=== PATIENT | male | born 1995 | race African-American/Black ===

== ENCOUNTER 2024-08-19 01:22 | Emergency (ER) | payer OTHER ==
[~2024-08-19] VITALS: Ht 177.8 cm; Wt 82.5 kg
[2024-08-19 01:44] VITALS: BP 151/81; PULSE 82; RESP 18; TEMP 99.1; O2SAT 99
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
--- NOTE | 2024-08-19 02:33 | DVH ---
CLINICAL INDICATION: injury/pain TECHNIQUE: XY R FOOT 3 VIEW XRAY Comparison: None FINDINGS/IMPRESSION: : There is no evidence of acute fracture or dislocation. Soft tissues are unremarkable.
[2024-08-19] MEDS ORDERED: IBUP-1456 PO (03:11)
== END 2024-08-19 03:16 | disposition home or self-care (01) ==
LOC: ER 01:22
DX: S90.31XA Contusion of right foot, initial encounter (principal); Z88.0 Allergy status to penicillin; V29.888A Rider (driver) (passenger) of other motorcycle injured in other specified transport accidents, initial encounter; Y93.55 Activity, bike riding; Y92.89 Other specified places as the place of occurrence of the external cause; Y99.8 Other external cause status
CPT/HCPCS: 73630

== ENCOUNTER 2024-12-29 04:20 | Emergency (ER) | payer OTHER, MEDICAID ==
[~2024-12-29] VITALS: Ht 177.8 cm; Wt 79.7 kg
[~2024-12-29 04:20] MED LIST: IBUP-1456 PO
--- NOTE | 2024-12-29 05:34 | ED.PDOC ---
History of Present Illness HPI Comments 29 y/o M presents with c/c on-and-off, poking-sensation chest pain for the past 7x months. Endorsement or unprovoked and atraumatic onset. No pertinent medical, surgical, social, or family history. Denies any shortness of breath, palpitations, dizziness, or further associated symptoms. Chief Complaint: Chest Pain Time Seen by MD: 04:30 Allergies: Coded Allergies: Penicillins (Verified Allergy, Unknown, 08/19/24) Home Meds Active Scripts Ibuprofen (Ibuprofen) 800 Mg Tab, 800 MG PO Q8HP PRN for 4 Days, #12 TAB Prov:ALFREDA OCHOA REGULATORY AFFAIRS DIRECTOR 08/19/24 Information Source: Patient Mode of Arrival: Ambulatory Past Medical History PAST MEDICAL HISTORY: Denies Surgical History: Denies all surgeries Family History Family History: Unknown Social History Smoker: Non-Smoker Alcohol: Denies ETOH Use Drugs: Denies Drug Use Lives In: Home All Other Systems: Reviewed and Negative (Comprehensive systems review obtained and negative except for what is stated in the HPI.) Physical Exam General Appearance: No Apparent Distress, Normal HEENT: Normal ENT Inspection, Pharynx Normal, TMs Normal Neck: Full Range of Motion, Non-Tender, Normal, Normal Inspection Respiratory: Chest Non-Tender, Lungs Clear, No Accessory Muscle Use, No Respiratory Distress, Normal Breath Sounds Cardiovascular: No Edema, No JVD, No Murmur, No Gallop, Normal Peripheral Pulses, Regular Rate/Rhythm Breast Exam: Deferred Gastrointestinal: No Organomegaly, Non Tender, No Pulsatile Mass, Normal Bowel Sounds, Soft Genitalia: Deferred Pelvic: Deferred Rectal: Deferred Extremities: No calf tenderness, Normal capillary refill, Normal inspection, Normal range of motion, Non-tender, No pedal edema Musculoskeletal : Apperance: Normal Neurologic: Alert, waste hand II-XII nml as Tested, No Motor Deficits, Normal Affect, Normal Mood, No Sensory Deficits Cerebellar Function: Normal Reflexes: Normal Skin: Dry, Normal Color, Warm Lymphatic: No Adenopathy Was a procedure done? Was a procedure done?: No EKG EKG #1: Pulse Rate (adult): 65 [place]: Normal Cardiac Rhythm: NSR Block: None Hypertrophy: None ST: Normal EKG #2: Pulse Rate (adult): 66 [place]: Normal Cardiac Rhythm: NSR Block: None Hypertrophy: None ST: Normal Differential Dx Considerations may include: NH, PE, ACS, URI, PNA, angina, anxiety, GERD, among others X-Ray, Labs, Meds, VS Vital Signs Date Time Temp Pulse Resp B/P (MAP) Pulse Ox O2 Delivery O2 Flow Rate FiO2 12/29/24 05:34 66 12/29/24 04:45 66 12/29/24 04:31 65 12/29/24 04:24 97.6 70 16 129/88 97 97.6 Lab Test 12/29/24 05:33 12/29/24 04:35 Range/Units Troponin I High Sensitivity 4 3 L </=54 ng/L Patient alert. Complaining of chest discomfort. On examination he denies chest pain. Cardiac marker within normal limits. No leg swelling. No shortness a breath. Saturation pristine on room air. Chest x-ray reviewed does not show any acute process. No acute process. Explained to the patient. Was told to follow up with his primary care physician. Was told to come back if there is any problem. Time of 1ST Reevaluation: 05:00 Reevaluation 1ST: Unchanged Patient Education/Counseling: Diagnosis, Treatment, Need For Follow Up Family Education/Counseling: Diagnosis, Treatment, Need For Follow Up Comments pt has had daily chest pain since june, with the description of sudden poking feeling. he has no cardiac risk factors however patient has labs are still pending. I will signed out to Additional Information Previous visits: N/A The following tests were ordered, and results were reviewed by me: CXR, EKG, troponin Additional Information was gathered from interviewing the following independent historians: N/A I reviewed and agreed with the following test results read by other providers: CXR I discussed treatment and results with medical personnel and: patient SEPSIS Sepsis Screen Date sepsis recognized/suspect: Dec 29, 2024 Time Sepsis recognized/suspect: 042 Recent Procedure: No On Antibiotic Therapy: No Respiratory Rate >20: No Heart Rate >90: No Temp<36 C (96.8 F) or >38.3 C: No SBP <90 or MAP <65 mmHG: No New Acute Mental Status Change: No Is the patient on CPAP, BIPAP,: No Physician Orders Electrocardigram (12/29/24 04:29) Troponin-I Hs (12/29/24 07:29) Electrocardigram (12/29/24 05:29) Electrocardigram (12/29/24 07:29) Chest Xray 1 View (12/29/24 04:51) Vital Signs Date Time Temp Pulse Resp B/P (MAP) Pulse Ox O2 Delivery O2 Flow Rate FiO2 12/29/24 05:34 66 12/29/24 04:45 66 12/29/24 04:31 65 12/29/24 04:24 97.6 70 16 129/88 97 97.6 Departure 1 Departure Time of Disposition: 06:36 Impression: Primary Impression: Atypical chest pain Additional Impression: Non-cardiac chest pain Disposition: 01 HOME / SELF CARE / HOMELESS Condition: Good Discharged With: Self, Relative Critical Care Note Critical Care Time?: No Stability Stability form required: No Heart Score Heart Score: Heart Score Response (Comments) Value History Slightly Suspicious 0 EKG Normal 0 Age <45 0 Risk Factors No known risk factors 0 Troponin Normal limit 0 Total 0 I personally scribed for JESÚS MURRELL MD ([email or web address]) on 12/29/24 at 05:34. Electronically submitted by Delroy Dumont ([email or web address]). JESÚS MURRELL MD Dec 29, 2024 05:34 ERIC CRAIN MD Dec 29, 2024 06:36
--- NOTE | 2024-12-29 05:43 | DVH ---
CHEST RADIOGRAPH Indication: cp Technique: 1 view Comparison: None FINDINGS: Lines and Tubes: None Lungs/Pleura: No focal consolidation, pleural effusion or pneumothorax. Cardiomediastinum: Unremarkable. Other: No acute osseous abnormality. IMPRESSION: 1. No acute cardiopulmonary abnormality.
[2024-12-29 07:01] VITALS: BP 127/83; PULSE 54; RESP 17; TEMP 98.5; O2SAT 100
--- NOTE | 2024-12-29 19:50 | ECG ---
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
--- NOTE | 2024-12-29 19:50 | ECG ---
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
--- NOTE | 2025-01-01 13:31 | ECG ---
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
== END 2024-12-29 07:01 | disposition home or self-care (01) ==
LOC: ER 04:20
DX: R07.89 Other chest pain (principal); Z88.0 Allergy status to penicillin
CPT/HCPCS: 36415; 71045; 84484; 93005

== ENCOUNTER 2025-03-29 12:37 | Emergency (ER) | payer MEDICAID, OTHER ==
[~2025-03-29] VITALS: Ht 177.8 cm; Wt 79.3 kg
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
[2025-03-29] MEDS ORDERED: NAP500T PO (16:17)
[2025-03-29 16:39] VITALS: BP 123/69; PULSE 60; RESP 18; TEMP 98.9; O2SAT 99
== END 2025-03-29 16:48 | disposition home or self-care (01) ==
LOC: ER 12:37
DX: M62.838 Other muscle spasm (principal); M54.2 Cervicalgia; M54.9 Dorsalgia, unspecified; M25.511 Pain in right shoulder; Z88.0 Allergy status to penicillin; V89.2XXA Person injured in unspecified motor-vehicle accident, traffic, initial encounter; Y93.I9 Activity, other involving external motion; Y92.488 Other paved roadways as the place of occurrence of the external cause; Y99.8 Other external cause status
CPT/HCPCS: 72125